=== PATIENT | male | born 1995 | race Hispanic/Latino ===

== ENCOUNTER 2020-01-25 07:14 | Emergency (ER) | payer SELFPAY ==
[2020-01-25 07:25] VITALS: BP 138/87
--- NOTE | 2020-01-25 09:44 | Emergency Department Report ---
Chief Complaint: Skin Rash Stated Complaint: RASH Time Seen by Provider: 01/25/20 09:16 - HPI History of Present Illness: 24-year-old male alert nontoxic no acute distress presents to the emergency room for generalized rash that he has had for 3 weeks. Patient states that it starts off as a blister it pops and then he starts to have this rash that is in lesions that are circular and dry. Patient states that they sometimes itch and is sometimes painful. Patient reports that he was seen at [facility]. Patient denies any fever chills no nausea no vomiting. Patient has a past surgical history of of appendectomy. - Exam Vital Signs: Vital Signs 01/25/20 07:24 Temperature 98.8 F Pulse Rate 97 H Respiratory 18 Rate Blood Pressure 138/87 [Right] O2 Sat by Pulse 100 Oximetry Physical Exam: Alert and oriented x3 no acute distress appears a little anxious. [place] is moist neck full range of motion, Skin multiple circular hypopigmented with well-defined borders and clear center with no erythematous no drainage no edematous. MSE screening note: Focused history and physical exam performed. Due to findings the following was ordered: 24-year-old male alert nontoxic no acute distress presents to the emergency room for generalized rash that he has had for 3 weeks. Patient states that it starts off as a blister it pops and then he starts to have this rash that is in lesions that are circular and dry. Patient states that they sometimes itch and is sometimes painful. Patient reports that he was seen at [facility]. Patient denies any fever chills no nausea no vomiting. Patient has a past surgical history of of appendectomy. Patient does not appear to have cellulitis at this time. Patient will be discharged to follow-up with a carton making machine operator I have listed 1 below for his convenience. Patient take [id number] Tylenol or ibuprofen as needed for pain management. ED Disposition for MSE Clinical Impression: Rash and nonspecific skin eruption Disposition: MED SCREENING EXAM-LEFT Is pt being admited?: No Does the pt Need Aspirin: No Condition: Stable Instructions: Acute Rash (ED) Additional Instructions: You can try [id number] Lotrisone cream as well as hydrocortisone and to follow up with your primary care provider as well as a carton making machine operator for further evaluation. Referrals: LIZA LOPEZ MD [Staff Physician] - 3-5 Days ISIDRO TEJADA MD [Staff Physician] - 3-5 Days HILLARY BUSBY MD [Staff Physician] - 3-5 Days Forms: Work/School Release Form(ED)
--- NOTE | 2020-01-25 09:53 | Emergency Department Report ---
HPI - General Chief Complaint: Skin Rash Time Seen by Provider: 01/25/20 09:16 - HPI HPI: 24-year-old male presents to the emergency department with complaint of a rash to the arms, legs, face and torso that is been going on for the past 2 weeks. However this actually has been going on longer since he was previously for this about a month ago and i at the [facility] in [place]. He completed a course of antibiotics that he says helped at that time but the symptoms have since come back. He says he developed small blisters which then start peeling and ulcerate. He also complains of some type of pain and swelling to the left thumb. He drained it himself last night and says there was a release of some clear fluid. He denies any fever. ED Past Medical Hx - Past Medical History Previous Medical History?: No - Surgical History Hx Appendectomy: Yes - Medications Home Medications: Home Medications Medication Instructions Recorded Confirmed Last Taken Type Prednisone [predniSONE 5 mg (6-Day 5 mg PO .TAPER #1 tab.ds.pk 01/25/20 Unknown Rx Pack, 21 Tabs)] Sulfamethoxazole/Trimethoprim 1 each PO BID #14 tablet 01/25/20 Unknown Rx [Bactrim DS TAB] ED Review of Systems ROS: Stated complaint: RASH Other details as noted in HPI Comment: All other systems reviewed and negative Constitutional: denies: chills, fever Respiratory: denies: cough, shortness of breath Musculoskeletal: myalgia Skin: rash, lesions, pruritus Physical Exam - Physical Exam Vital Signs: Vital Signs 01/25/20 07:24 Temperature 98.8 F Pulse Rate 97 H Respiratory 18 Rate Blood Pressure 138/87 [Right] O2 Sat by Pulse 100 Oximetry ED Course Vital Signs 01/25/20 07:24 Temperature 98.8 F Pulse Rate 97 H Respiratory 18 Rate Blood Pressure 138/87 [Right] O2 Sat by Pulse 100 Oximetry Critical care attestation.: If time is entered above; I have spent that time in minutes in the direct care of this critically ill patient, excluding procedure time. ED Disposition Clinical Impression: Rash and nonspecific skin eruption Disposition: MED SCREENING EXAM-LEFT Condition: Stable Instructions: Acute Rash (ED) Additional Instructions: You can try [id number] Lotrisone cream as well as hydrocortisone and to follow up with your primary care provider as well as a equipment mechanic specialist for further evaluation. Prescriptions: Sulfamethoxazole/Trimethoprim [Bactrim DS TAB] 1 each PO BID #14 tablet Prednisone [predniSONE 5 mg (6-Day Pack, 21 Tabs)] 5 mg PO .TAPER #1 tab.ds.pk Referrals: LIZA LOPEZ MD [Staff Physician] - 3-5 Days ISIDRO TEJADA MD [Staff Physician] - 3-5 Days HILLARY BUSBY MD [Staff Physician] - 3-5 Days Forms: Work/School Release Form(ED)
--- NOTE | 2020-01-25 10:00 | Emergency Department Report ---
HPI - General Chief Complaint: Skin Rash Time Seen by Provider: 01/25/20 09:16 - HPI HPI: 24-year-old male presents to the emergency department with a two-week history of a rash to the face, arms, hands, fingers, legs, torso. Patient says that he has small painful pimple-like projections that been peeled off and ulcerate. Patient also had some swelling and discomfort to the left thumb that he says he cut last night and drained with some release of clear fluid. The patient has had a similar rash or skin eruption about a [facility] [place] He was diagnosed with cellulitis and placed on antibiotics at that time that appeared to clear up the infection. He denies any past medical history. No recent travel or sick contacts at home. He does not have a primary care physician. ED Past Medical Hx - Past Medical History Previous Medical History?: No - Surgical History Hx Appendectomy: Yes - Medications Home Medications: Home Medications Medication Instructions Recorded Confirmed Last Taken Type Prednisone [predniSONE 5 mg (6-Day 5 mg PO .TAPER #1 tab.ds.pk 01/25/20 Unknown Rx Pack, 21 Tabs)] Sulfamethoxazole/Trimethoprim 1 each PO BID #14 tablet 01/25/20 Unknown Rx [Bactrim DS TAB] ED Review of Systems ROS: Stated complaint: RASH Other details as noted in HPI Constitutional: denies: chills, fever Musculoskeletal: denies: back pain Skin: rash, lesions, pruritus Physical Exam - Physical Exam Vital Signs: Vital Signs 01/25/20 07:24 Temperature 98.8 F Pulse Rate 97 H Respiratory 18 Rate Blood Pressure 138/87 [Right] O2 Sat by Pulse 100 Oximetry Physical Exam: GENERAL: The patient is well-developed well-nourished. HENT: Normocephalic. Atraumatic. Patient has moist mucous membranes. EYES: Extraocular motions are intact. NECK: Supple. Trachea is midline. ABDOMEN: There is no abdominal distention. SKIN: Patient has multiple different skin lesions. He has some circular, slightly ulcerating lesions to the bilateral upper extremities that have a psoriatic appearance. Patient has some pustules and papules to his face within the villegas that could be consistent with some early folliculitis. Otherwise he does have some nonspecific papules or small circular scaly lesions. NEURO: The patient is awake, alert, and oriented. The patient is cooperative. The patient has no focal neurologic deficits. Normal speech. MUSCULOSKELETAL: There is no tenderness or deformity. There is no evidence of acute injury. ED Course Vital Signs 01/25/20 07:24 Temperature 98.8 F Pulse Rate 97 H Respiratory 18 Rate Blood Pressure 138/87 [Right] O2 Sat by Pulse 100 Oximetry ED Medical Decision Making - Medical Decision Making Patient presents with a two-week history of a nonspecific rash. Some of the areas look consistent with psoriasis or ringworm. Some areas could be early folliculitis. Otherwise a mostly nonspecific. Vital signs stable including being afebrile. The patient appears safe for discharge home at this time. He has been given a referral for dermatology. He will be placed on some antibiotics and steroids. He will return to the ER with any worsening of his symptoms or any acute distress. Critical Care Time: No Critical care attestation.: If time is entered above; I have spent that time in minutes in the direct care of this critically ill patient, excluding procedure time. ED Disposition Clinical Impression: Rash and nonspecific skin eruption Disposition: MED SCREENING EXAM-LEFT Is pt being admited?: No Condition: Stable Instructions: Acute Rash (ED) Additional Instructions: You can try [id number] Lotrisone cream as well as hydrocortisone and to follow up with your primary care provider as well as a tow car driver for further evaluation. Prescriptions: Sulfamethoxazole/Trimethoprim [Bactrim DS TAB] 1 each PO BID #14 tablet Prednisone [predniSONE 5 mg (6-Day Pack, 21 Tabs)] 5 mg PO .TAPER #1 tab.ds.pk Referrals: LIZA LOPEZ MD [Staff Physician] - 3-5 Days ISIDRO TEJADA MD [Staff Physician] - 3-5 Days HILLARY BUSBY MD [Staff Physician] - 3-5 Days
== END 2020-01-25 10:10 | disposition left against medical advice (07) ==
LOC: ED 07:14
DX: R21 Rash and other nonspecific skin eruption (principal); Z90.49 Acquired absence of other specified parts of digestive tract
CPT/HCPCS: 99281